=== PATIENT | female | born 1990 | race Caucasian/White ===

== ENCOUNTER 2016-06-17 16:38 | Emergency (ER) | payer OTHER ==
[2016-06-17 16:53] VITALS: RESP 18; TEMP 98; O2SAT 97
[2016-06-17 17:04] LABS: COLOR YELLOW; LEUKOCYTE ESTERASE,URINE NEGATIVE (NEGATIVE); NITRITE,URINE NEGATIVE (NEGATIVE)
--- NOTE | 2016-06-17 17:04 | UCPHY ---
H & P Time Seen by Provider: 06/17/16 16:58 Patient Type: Established HPI/ROS: CHIEF COMPLAINT: Left upper quadrant pain HISTORY OF PRESENT ILLNESS: 25-year-old female presents emergency department reporting significant left upper quadrant discomfort and nausea which started yesterday. Patient reports being nauseous for the last week. Initially she thought it was related to her heartburn. She also has been under stress and has been drinking alcohol more frequently secondary to issues with regarding a divorce. 2 days ago she had onset of diarrhea as well as some crampy abdominal discomfort. Yesterday she began to experience severe pain in the left upper quadrant with any liquids or food. She has not had any vomiting but reports that she does not feel like she wants to eat because as soon as the food hits her stomach she develops significant sharp, crampy discomfort which last approximately an hour. She does have a history of reflux which typically causes burning discomfort in her chest. The symptoms are not similar to today' s symptoms. She has been taking Tums without relief. No cough or cold symptoms. No discomfort with respiration. Patient denies fevers, vomiting, ongoing diarrhea, right-sided abdominal pain or lower quadrant pain, and denies urinary complaints. REVIEW OF SYSTEMS: Aside from elements discussed in the HPI, a comprehensive 10-point review of systems was reviewed and is negative. PAST MEDICAL HISTORY: Possible IBS, GERD, sensitivity to wheat and dairy. SOCIAL HISTORY: Smoker, heavy alcohol use recently. VITAL SIGNS Reviewed by me. GENERAL: Well-developed, well-nourished, resting comfortably in no respiratory distress. HEENT: Atraumatic. Eyes: No icterus, no injection. Mouth: Slightly dry mucous membranes. No erythema or lesions. Neck: supple with no adenopathy. LUNGS: Clear to auscultation bilaterally, no wheezes, rhonchi or rales. CARDIAC: Regular rate and rhythm, no rubs, murmurs or gallops. ABDOMEN: Soft, moderate tenderness in the left upper quadrant with palpation resulting in significant nausea and gagging. Nondistended, bowel sounds normal. BACK: No CVA tenderness. EXTREMITIES: No trauma. No edema. Range of motion is normal throughout. NEURO: Alert and oriented, grossly nonfocal. SKIN: Warm and dry, no rash. PSYCHIATRIC: Normal mentation, no agitation. Smoking Status: Never smoked Constitutional: Initial Vital Signs Temperature (C) 36.6 C 01/24/17 16:50 Heart Rate 82 06/17/16 16:50 Respiratory Rate 18 06/17/16 16:50 Blood Pressure 150/97 H 06/17/16 16:50 O2 Sat (%) 97 06/17/16 16:50 O2 Delivery Mode Room Air Allergies/Adverse Reactions: amoxicillin Allergy (Verified 06/17/16 16:50) Penicillins Allergy (Verified 09/26/13 16:25) Home Medications: Medication Instructions Recorded Hydrocodone/APAP 5/325 [[place] 1 tab PO Q6H PRN #10 tab 06/17/16 5/325 (RX)] Ondansetron Odt [Zofran Odt 4 mg 4 mg PO Q6 PRN #8 tab 06/17/16 (RX)] Zithromax 06/17/16 Medical Decision Making - Diagnostics Imaging: Results: CT scan of the abdomen pelvis was obtained. I viewed the images independently on the PACS system. I discussed the results of the study with the radiologist. Impression: 1. Normal appendix. No evidence of colitis or enteritis to explain nausea and abdominal pain. 2. 3-cm right ovarian cyst. 3. Mild constipation. Please see the full radiology report. ED Course/Re-evaluation: IV was placed and patient received fentanyl as well as Zofran. Urinalysis demonstrates trace ketones. Urine test is negative. Laboratory evaluation: Normal LFTs, normal lipase. Normal white count. Negative H pylori. Patient had a CT scan obtained to evaluate for her significant left upper quadrant discomfort. This was negative for any acute findings. Please see the radiology report. Urinalysis does not demonstrate any signs of infection or kidney stones. Patient was advised to follow up with gastroenterology. Her nausea was improved with Zofran. She received a L of normal saline. She was discharged with Zofran to use as needed for ongoing nausea as well as [place] for any severe abdominal pain. She was encouraged to begin taking a 14 day course of Prilosec. Differential Diagnosis: After obtaining the patient's history and performing an examination, differential diagnosis considered included but was not limited to cholecystitis , gastritis, pancreatitis, kidney stones, urinary tract infections, reflux, ulcer disease, bowel obstruction, and other causes. - Data Points Laboratory Results: Laboratory Results 06/17/16 17:50 06/17/16 17:50 06/17/16 06/17/16 06/17/16 Unknown 17:50 17:00 WBC 6.98 10^3/uL (3.80-9.50) RBC 4.37 10^6/uL (4.18-5.33) Hgb 13.6 g/dL (12.6-16.3) Hct 40.8 % (38.0-47.0) MCV 93.4 fL (81.5-99.8) MCH 31.1 pg (27.9-34.1) MCHC 33.3 g/dL (32.4-36.7) RDW 13.0 % (11.5-15.2) Plt Count 305 10^3/uL (150-400) MPV 10.5 fL (8.7-11.7) Neut % (Auto) 52.7 % (39.3-74.2) Lymph % (Auto) 36.1 % (15.0-45.0) [place] % (Auto) 8.6 % (4.5-13.0) Eos % (Auto) 1.4 % (0.6-7.6) Baso % (Auto) 0.9 % (0.3-1.7) Nucleat RBC Rel Count 0.0 % (0.0-0.2) Absolute Neuts (auto) 3.68 10^3/uL (1.70-6.50) Absolute Lymphs (auto) 2.52 10^3/uL (1.00-3.00) Absolute Monos (auto) 0.60 10^3/uL (0.30-0.80) Absolute Eos (auto) 0.10 10^3/uL (0.03-0.40) Absolute Basos (auto) 0.06 10^3/uL (0.02-0.10) Absolute Nucleated RBC 0.00 10^3/uL (0-0.01) Immature Gran % 0.3 % (0.0-1.1) Immature Gran # 0.02 10^3/uL (0.00-0.10) Sodium 145 H mEq/L (134-144) Potassium 3.8 mEq/L (3.5-5.2) Chloride 106 mEq/L (97-110) Carbon Dioxide 28 mEq/l (22-31) Anion Gap 11 mEq/L (8-16) BUN 8 mg/dL (7-23) Creatinine 0.6 mg/dL (0.6-1.0) Estimated GFR > 60 Glucose 91 mg/dL (70-100) Calcium 9.6 mg/dL (8.5-10.4) Total Bilirubin 0.5 mg/dL (0.1-1.4) Conjugated Bilirubin 0.4 mg/dL (0.0-0.5) Unconjugated Bilirubin 0.1 mg/dL (0.0-1.1) AST 21 IU/L (14-46) ALT 27 IU/L (9-52) Alkaline Phosphatase 60 IU/L (38-126) Total Protein 7.2 g/dL (6.3-8.2) Albumin 4.0 g/dL (3.5-5.0) Lipase 78.0 IU/L (23-300) Urine Color YELLOW Urine Appearance HAZY Urine pH 7.0 (5.0-7.5) Ur Specific [place] 1.020 (1.002-1.030) Urine Protein NEGATIVE (NEGATIVE) Urine Ketones TRACE H (NEGATIVE) Urine Blood NEGATIVE (NEGATIVE) Urine Nitrate NEGATIVE (NEGATIVE) Urine Bilirubin NEGATIVE (NEGATIVE) Urine Urobilinogen 0.2 EU (0.2-1.0) Ur Leukocyte Esterase NEGATIVE (NEGATIVE) Urine Glucose NEGATIVE (NEGATIVE) Urine Test NEGATIVE H. pylori IgG Antibody NEGATIVE (NEG) Medications Given: Discontinued Medications Acetaminophen/Hydrocodone Bitart ([place] 5/325mg Prepack#6) 1 btl TAKEHOME EDNOW ONE Stop: 06/17/16 19:15 Last Admin: 06/17/16 19:28 Dose: 1 btl Fentanyl (Sublimaze) 100 mcg IVP EDNOW ONE Stop: 06/17/16 17:18 Last Admin: 06/17/16 17:53 Dose: 100 mcg Sodium Chloride (Ns) 1,000 mls @ 0 mls/hr IV ONCE ONE PRN Reason: Wide Open Stop: 06/17/16 17:18 Last Admin: 06/17/16 17:53 Dose: 1,000 mls Ondansetron HCl (Zofran) 4 mg IVP EDNOW ONE Stop: 06/17/16 17:18 Last Admin: 06/17/16 17:54 Dose: 4 mg Ondansetron HCl (Zofran Odt 4 Mg Prepack#2) 1 btl MAVERICK GUNDERSONNOW ONE Stop: 06/17/16 19:15 Last Admin: 06/17/16 19:28 Dose: 1 btl Departure - Departure Disposition: Home, Routine, Self-Care Clinical Impression: Nausea Abdominal pain Qualifiers: Abdominal location: left upper quadrant Qualifier Code: (R10.12) Left upper quadrant pain Condition: Good Instructions: Acute Abdominal Pain (ED), Acute Nausea and Vomiting (ED) Additional Instructions: Please follow up with Gastroenterology. You been given referral to Dr. Salguero. Please begin taking Prilosec as directed. This is available [id number]. Use Zofran as needed for nausea. You may take it 20- 30 minutes before meal. You been given a prescription for [place]. You may use this as needed for severe pain. It is constipating so use it with caution. Return to Urgent Care if you develops fevers, vomiting, worsening pain, chest pain, cough, shortness of breath, or other concerns. For your abdominal pain, I suggested you start with a bland diet and advance as tolerated. This means start with clear liquids such as water, Gatorade, juice, flat non- caffeinated soda. If you tolerate clear liquids, then you may add bland foods such as bananas, rice, or toast. If you do not have any worsening of your symptoms, you may begin to resume a regular diet. [place]errals[place],. [Primary Care Provider] - As per Instructions Teresa Harper MD [Medical Doctor] - As per Instructions Prescriptions: Hydrocodone/APAP 5/325 [[place] 5/325 (RX)] 1 tab PO Q6H PRN #10 tab PRN Reason: Pain Ondansetron Odt [Zofran Odt 4 mg (RX)] 4 mg PO Q6 PRN #8 tab PRN Reason: Nausea - PQRS PQRS Measurement: Not applicable
[2016-06-17] MEDS ORDERED: fentaNYL 100 MCG/2 ML INJ IVP ONE (17:17)
[2016-06-17] MEDS ORDERED: ONDANSETRON 4 MG/2 ML VIAL IVP ONE (17:17)
[2016-06-17] MEDS ORDERED: NS 1,000 ML IV ONE (17:17)
[2016-06-17] MEDS ORDERED: IOPAMIDOL (ISOVUE-300) 100 ML BTL IV ONE (17:21)
[2016-06-17 17:56] LABS: % IMMATURE GRANULYOCYTES 0.3 % (0.0-1.1); ABSOLUTE IMMATURE GRANULOCYTES 0.02 10^3/uL (0.00-0.10); ADD DIFF? NO; ADD MORPH? NO; ADD SCAN? NO; ATYPICAL LYMPHOCYTE FLAG 20 (0-99); FRAGMENT RBC FLAG 0 (0-99); HEMATOCRIT 40.8 % (38.0-47.0); HEMOGLOBIN 13.6 g/dL (12.6-16.3); LEFT SHIFT FLG 0 (0-99); LIPEMIA HEMOLYSIS FLAG 80 (0-99); MEAN CELL HEMOGLOBIN 31.1 pg (27.9-34.1); MEAN CELL HEMOGLOBIN CONCENTR. 33.3 g/dL (32.4-36.7); MEAN CELL VOLUME 93.4 fL (81.5-99.8); MEAN PLATELET VOLUME 10.5 fL (8.7-11.7); PLATELET CLUMPS FLAG 0 (0-99); PLATELET COUNT 305 10^3/uL (150-400); RED BLOOD CELL COUNT 4.37 10^6/uL (4.18-5.33)
[2016-06-17 18:12] LABS: ALANINE AMINOTRANSFERASE 27 IU/L (9-52); ALKALINE PHOSPHATASE 60 IU/L (38-126); ANION GAP 11 mEq/L (8-16); ASPARTATE AMINOTRANSFERASE 21 IU/L (14-46); BILIRUBIN,TOTAL 0.5 mg/dL (0.1-1.4); BILIRUBIN-CONJUGATED 0.4 mg/dL (0.0-0.5); BILIRUBIN-UNCONJUGATED 0.1 mg/dL (0.0-1.1); CALCIUM 9.6 mg/dL (8.5-10.4); CARBON DIOXIDE 28 mEq/l (22-31); CHLORIDE 106 mEq/L (97-110); CREATININE 0.6 mg/dL (0.6-1.0); GLOMERULAR FILTRATION RATE > 60; GLUCOSE 91 mg/dL (70-100); POTASSIUM 3.8 mEq/L (3.5-5.2); SODIUM 145 mEq/L (134-144); TOTAL PROTEIN 7.2 g/dL (6.3-8.2)
[2016-06-17] MEDS ORDERED: HYDROCOD/APAP 5/325 PREPACK#6 BTL TAKEHOME ONE (19:14)
[2016-06-17] MEDS ORDERED: ONDANSETRON 4MG PREPACK#2 BTL TAKEHOME ONE (19:14)
[2016-06-17] MEDS ORDERED: ONDANSETRON DISINTEGRATING 4 MG TAB ONE (19:22)
[2016-06-17 19:30] VITALS: BP 108/62; PULSE 75
--- NOTE | 2016-06-17 19:32 | CT ---
CT Scan of the Abdomen and Pelvis (With Contrast) Indication: Abdominal pain and nausea. Technique: No oral or rectal contrast. 90 mL of Isovue-300 were given intravenously by machine power injection. Multidetector helical CT imaging was performed from the diaphragm to the symphysis pubis . Dose reduction techniques were utilized. Comparison: CT abdomen and pelvis dated November 04, 2012. Findings: No intraabdominal mass, lymphadenopathy, free fluid, mesenteric edema, or pneumoperitoneum . Bowel pattern is normal, with the exception of mild right-sided constipation. The appendix is normal and well visualized. A 3.0 cm right ovarian cyst has minimal adjacent free fluid in the cul-de-sac. The left ovary is normal size. The anteverted uterus is normal size, and the urinary bladder is ne alexa completely empty. No hydronephrosis, nephrolithiasis, or ureteral calculi. Benign bilateral fe gregory lobulation is unchanged since October 2012. The liver and spleen are normal size and homogeneously enhance. The portal venous system is patent. No biliary dilation. The gallbladder is contracted. The pancreas and adrenal glands are normal. The lung bases are clear. The abdominal aorta is normal. No pars defect or bone lesion. Impression; 1. Normal appendix. No evidence of colitis or enteritis to explain nausea and abdominal pain. 2. 3-cm right ovarian cyst. 3. Mild constipation. Comment: Results were discussed with Dr. Dhillon at 6:50 p.m. on June 17, 2016.
== END 2016-06-17 19:28 | disposition home or self-care (01) ==
LOC: CED 16:38
DX: R10.12 Left upper quadrant pain (principal); R11.0 Nausea; R12 Heartburn; Z72.89 Other problems related to lifestyle; Z72.0 Tobacco use
CPT/HCPCS: 74177-PO; 80048-PO; 80076-PO; 81003-PO; 81025-PO; 83690-PO; 85025-PO; 86677-PO; 96361-PO; 96374-PO; 96375-PO; G0463-PO; J2405; J3010; Q9967